=== PATIENT | male | born 1955 | race American Indian/Alaskan Native ===

== ENCOUNTER 2022-01-06 18:20 | Emergency (ER) | payer MEDICARE, BC ==
[2022-01-06 20:50] LABS: ESTIMATED GFR 94 mL/min (>60)
[2022-01-06] MEDS ORDERED: Propranolol 40 MG Tab PO ONE (21:25)
[2022-01-06] MEDS ORDERED: cloNIDine 0.1 MG Tab PO ONE (21:45)
[2022-01-06] MEDS ORDERED: Nitroglycerin 2% Oint 1 GM UD Packet TOP ONE (22:32)
== END 2022-01-06 23:17 ==
LOC: JP.ED 18:20
DX: F10.10 Alcohol abuse, uncomplicated (principal); I10 Essential (primary) hypertension; F17.210 Nicotine dependence, cigarettes, uncomplicated; Y90.5 Blood alcohol level of 100-119 mg/100 ml; Z20.822 Contact with and (suspected) exposure to COVID-19
CPT/HCPCS: 36415; 80053; 80305; 80307; 85025; 85610; 99285; A9270; U0002